=== PATIENT | male | born 1975 | race Caucasian/White ===

== ENCOUNTER 2025-01-28 16:06 | Emergency (ER) | payer SELFPAY ==
--- NOTE | ~2025-01-28 | XR_ITS ---
CLINICAL HISTORY: pain, injury 3 views lumbar spine Comparison: None provided Findings: There are 5 [id number] lumbar-type vertebral bodies. There is mild straightening of the normal lumbar lordosis. No acute fractures or dislocation. No significant degenerative change. IMPRESSION: No acute displaced fracture or traumatic subluxation of the lumbar spine. This document has been electronically signed by: Kaykay Machado MD on 01/28/2025 20:07:59
--- NOTE | ~2025-01-28 | XR_ITS ---
CLINICAL HISTORY: pain, injury 6 view, chest and left ribs Comparison: None provided Findings: No fractures or dislocations of the ribs. The lungs and cardiomediastinal silhouette are unremarkable. IMPRESSION: No acute rib fractures. This document has been electronically signed by: Kaykay Machado MD on 01/28/2025 20:06:46
[2025-01-28 16:14] VITALS: BP 126/73; PULSE 63; RESP 16; TEMP 36.3; O2SAT 99; BMI 29.5
--- NOTE | 2025-01-28 16:15 | ED_ITS ---
HPI - General Adult General Chief complaint: General Medical Stated complaint: Dizziness Headache Time Seen by Provider: 01/28/25 19:13 Source: patient, RN notes reviewed and old records reviewed Mode of arrival: ambulatory Limitations: no limitations History of Present Illness ED Provider: Aldo KNOTT narrative: 49-year-old male presents for evaluation of left flank pain. 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 He reports that he was removing an engine from a van yesterday. He reports that the engine fell and struck the patient in his left flank. He has pain to his left lower back and left flank region. Denies any nausea, vomiting, diarrhea pain Denies any blood in the urine Related Data Previous Rx's ?Medication ?Instructions ?Recorded naproxen 500 mg tablet 500 mg PO BID PRN pain #20 t abs 01/28/25 Allergies Allergy/AdvReac Type Severity Reaction Status Date / Time No Known Allergies (No Known Allergy Verified 01/28/25 16:15 Allergies*) Review of Systems Constitutional: Constitutional: Denies body ache(s), Denies chills, Denies fever(s) and Denies headache(s) Eyes: Eyes: Denies blurry vision ENT: Denies vertigo, Denies dizziness and Denies headache(s) Cardiovascular: Cardiovascular: Denies chest pain Respiratory: Respiratory: Denies cough Gastrointestinal: Gastrointestinal: Denies abdominal pain, Denies nausea and Denies vomiting Genitourinary: Genitourinary: Reports flank pain Musculoskeletal: Musculoskeletal: Reports back pain Integumentary/Breasts: Skin/Breast: Denies rash Neurologic: Denies vertigo, Denies dizziness and Denies headache(s) PMFSH Social History Social History Advance Directives: No Advance Directives Information Provided: No Physical Exam ED Vital Signs: Vital Signs - 24 hr 01/28/25 16:14 01/28/25 20:23 Temperature 97.3 F 97.3 F Pulse Rate 63 63 Respiratory Rate 16 16 Blood Pressure 126/73 126/73 Pulse Oximetry 99 99 Oxygen Delivery Method Room Air Room Air BMI result Body Mass Index 29.5 Const General: healthy appearing, comfortable, no acute distress, alert and awake Nutritional Appearance: well nourished Orientation/consciousness: patient oriented x3 HENMT Head: Yes normocephalic and Yes atraumatic Eyes Eyelids: Yes eyelids normal Conjunctivae: conjunctivae normal Sclerae: sclerae normal Corneas: corneas normal Pupils: Equal, round and reactive pupils present EOM: EOMs intact bilaterally Neck Neck: Yes full ROM Resp Effort & Inspection: normal respiratory effort, able to speak in complete sentences, no audible wheezes and not labored Auscultation: clear to auscultation bilaterally Cardio Rate: regular rate Rhythm: regular rhythm GI Other: No peritoneal signs, no ecchymosis Inspection: No abdominal wall ecchymosis and No distended Palpation (GI): Soft to palpation, not firm, nontender, no guarding and not rigid Back/Spine/Pelvis Other: No ecchymosis or crepitus Skin General skin exam: elasticity normal Neuro General: patient oriented x3 Cranial nerves: Yes Equal, round and reactive pupils present and Yes Bilaterally intact EOM present Cognition (Neuro): normal cognition Extrem Other: Moving all extremities well without any obvious deformities Course Course Course Narrative: Rapid medical examination performed in triage by Marlen Mon PA-C. Patient is a 49 year old assigned male at presenting to the emergency d [facility] with left sided back and rib pain after a van shifted while he was under it doing an oil change. Detailed physical exam and review of systems are deferred to the hotel reservation agent. Imaging ordered. Patient placed back in the waiting room pending room availability and results. Medications Administered Discontinued Medications Generic Name Dose Route Start Last Admin Trade Name Freq PRN Reason Stop Dose Admin Naproxen 500 mg 01/28/25 20:13 01/28/25 20:16 Naproxen 500 Mg Tablet PO 01/28/25 20:14 500 mg ONCE ONE Administration Medical Decision Making Medical Decision Making [facility] Narrative: 49-year-old male presents for evaluation of left-sided flank pain. He had an engine fall onto his left side yesterday morning. He has no obvious ecchymosis, no wounds, no crepitus on exam. No abdominal tenderness. X-rays of the left ribs and lumbar spine are both negative for acute fractures. No evidence of pneumothorax. There was no significant abdominal tenderness, considered CT scan in his the abdomen pelvis with IV contrast but ultimately deferred due to low suspicion for significant intra-abdominal injury. The patient be discharged home with symptomatic care Differential Diagnosis Differential Diagnoses: The differential diagnosis associated with the presentation includes Contusion Muscle strain Rib fracture Compression fracture Radiology Impression Discussion of test interpretation with radiology: I have reviewed the radiologist's reading. Radiologist Impression: Findings: There are 5 [id number] lumbar-type vertebral bodies. There is mild straightening of the normal lumbar lordosis. No acute fractures or dislocation. No significant degenerative change. IMPRESSION: No acute displaced fracture or traumatic subluxation of the lumbar spine. This document has been electronically signed by: Kaykay Machado MD on 01/28/2025 20:07:59 Findings: No fractures or dislocations of the ribs. The lungs and cardiomediastinal silhouette are unremarkable. IMPRESSION: No acute rib fractures. This document has been electronically signed by: Kaykay Machado MD on 01/28/2025 20:06:46 Discharge Plan Discharge Clinical Impression: Left flank pain Patient Disposition: Home, Self-Care Instructions: Contusion in Adults (ED) Additional Instructions: Your x-rays did not show any concerning abnormalities No evidence of fracture to your spine or ribs. I recommend using naproxen as needed for pain. You may also use topical lidocaine patches Prescriptions: New naproxen 500 mg tablet 500 mg PO BID PRN (Reason: pain) Qty: 20 0RF Interventions: ED Discharge Assessment Last Done: 01/28/25 20:23 Discharge Date/Time: 01/28/25 20:24 Print Language: Georgian
[2025-01-28 20:23] VITALS: BP 126/73; PULSE 63; RESP 16; TEMP 36.3; O2SAT 99
== END 2025-01-28 20:24 | disposition home or self-care (01) ==
PROVIDERS: Emergency Provider Emergency Medicine
DX: R42 Dizziness and giddiness (principal); R07.89 Other chest pain; R10.A2 Flank pain, left side
CPT/HCPCS: 71101; 72100; 99283

== ENCOUNTER → 2025-01-28 16:18 | Outpatient (BNV) | payer SELFPAY | PROVIDERS: Emergency Provider Emergency Medicine; Visit Provider Student in an Organized Health Care Education/Training Program | DX: R07.89 Other chest pain (principal); M54.50 Low back pain, unspecified | CPT/HCPCS: 71101; 72100 ==